=== PATIENT | male | born 1975 | race Caucasian/White ===

== ENCOUNTER 2021-04-03 08:40 | Emergency (ER) | payer BC, OTHER ==
[~2021-04-03] VITALS: Ht 188 cm; Wt 123.4 kg
--- NOTE | 2021-04-03 09:01 | NUR ---
BIB [facility],[employer] FOUND HIM LAYING NAKED IN A PARKING LOT,WITH NO DEFINITE COMPLAINT. THE PATIENT DENIES PAIN. IN ROOM AIR AND DENIES SOB. RESPIRATIN REGULAR AND UNLABORED. WILL CONTINUE TO MONITOR THE PATIENT.
--- NOTE | 2021-04-03 11:47 | NUR ---
Rheumatology Nurse consultation: Rheumatology Nurse consultation requested due to patient asking to meet with a social sciences lecturer. Patient is a 45 year old male, who was brought into the ED by paramedics after [employer] found him laying naked in a parking lot. Per ED physician's notes, patient does not have any definite complaints, except wanting to speak with a social sciences lecturer. This LADLE CAR OPERATOR attempted to meet with the patient. Patient was asleep, and this LADLE CAR OPERATOR had to call out his name 3 times for patient to open his eyes. Patient was unable to keep his eyes open, dosing off when this LADLE CAR OPERATOR attempted to interview him. This LADLE CAR OPERATOR needed to ask patient to open his eyes, and when patient was able to, he was observed to be rolling his eyes. Patient's responses are delayed, and at times patient is unable to provide responses to questions. 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 Some of patient's responses were incoherent, and when this LADLE CAR OPERATOR would ask patient to repeat his response, and patient would just stare at this LADLE CAR OPERATOR without providing a response. Patient was able to provide this LADLE CAR OPERATOR with his last name after this LADLE CAR OPERATOR asked him 3 times. Patient was not able to provide his , and was not oriented to place and reason for ED visit. At this time, this LADLE CAR OPERATOR is unable to complete a thorough assessment. This LADLE CAR OPERATOR met with Dr. Arteaga and discussed above information. Rheumatology Nurse will follow-up later after Dr. Arteaga completes medical screening. Patient presents with poor hygiene, foul body odor, and is unkempt and disheveled.
[2021-04-03 12:14] LABS: BASOPHILS # (AUTO) 0.1 K/uL (0.0-0.2); BASOPHILS % (AUTO) 0.8 % (0.0-2.0); EOSINOPHILS % (AUTO) 0.5 % (0.0-6.0); HEMATOCRIT 48 % (39-51); HEMOGLOBIN 16.3 g/dL (13.5-17.5); LYMPHOCYTES # (AUTO) 2.2 K/uL (0.8-4.8); LYMPHOCYTES % (AUTO) 20.6 % (20.0-44.0); MEAN CORPUSCULAR HGB CONC 34 g/dl (31.0-36.0); MEAN CORPUSCULAR VOLUME 91 fL (80-96); MONOCYTES # (AUTO) 0.9 K/uL (0.1-1.30); MONOCYTES % (AUTO) 8.6 % (2.0-12.0); NEUTROPHILS # (AUTO) 7.5 K/uL (1.8-8.9); NEUTROPHILS % (AUTO) 69.5 % (43.0-81.0); PLATELET COUNT (AUTO) 310 K/uL (150-450); RED BLOOD CELL COUNT(AUTO) 5.27 MIL/uL (4.5-6.0); WHITE BLOOD COUNT (AUTO) 10.8 K/uL (4.3-11.0)
[2021-04-03 12:28] LABS: ALANINE AMINOTRANSFERASE 22 U/L (12-78); ALBUMIN 3.6 g/dL (3.4-5.0); ALCOHOL, BLOOD < 3 mg/dL (0-0); ALKALINE PHOSPHATASE 121 U/L (46-116); ASPARTATE AMINOTRANSFERASE 37 U/L (15-37); BILIRUBIN,DIRECT 0.3 mg/dL (0.0-0.2); BILIRUBIN,TOTAL 1.6 mg/dL (0.2-1.0); CALCIUM, SERUM 9.3 mg/dL (8.5-10.1); CARBON DIOXIDE 27 mmol/L (21-32); CHLORIDE 102 mmol/L (98-107); CREATININE 1.1 mg/dL (0.6-1.3); GLUCOSE 87 mg/dL (74-106); SODIUM SERUM 138 mmol/L (136-145); UREA NITROGEN, BLOOD 16 mg/dL (7-18)
[2021-04-03 12:53] LABS: ACETAMINOPHEN 0 ug/ml (10-30)
[2021-04-03 13:46] LABS: BILIRUBIN,URINE MODERATE (NEGATIVE); COLOR,URINE YELLOW (YELLOW); LEUKOCYTE ESTERASE ,URINE Negative (NEGATIVE); NITRITE, URINE Negative (NEGATIVE); PROTEIN,URINE 30 mg/dl (NEGATIVE); UGLUCOSE Negative (NEGATIVE)
--- NOTE | 2021-04-03 14:41 | NUR ---
Observation Nurse note: environmental services associate follow up for homelessness. SW attempted to interview patient at his bedside in the emergency department. Patient was arousable but presented confused and unresponsive. Patient was malodorous and appeared unkempt. Per toxicology report, patient is positive for amphetamine use. [employer] notified charge nurse, Ian of this SW's attempt to interview. [employer]CH was instructed to file homeless resources and waiver in the patient's chart. SS will remain available as needed.
[2021-04-03 14:47] LABS: RBC,URINE NONE SEEN /HPF (0-2); WBC,URINE NONE SEEN /HPF (0-3)
[2021-04-03 14:49] LABS: BACTERIA,URINE None seen /HPF (None Seen); SQUAMOUS EPITHELIAL CELL,UR 0-2 /HPF (None Seen)
[2021-04-03 14:51] LABS: HYALINE CASTS, URINE Rare /LPF (None Seen)
--- NOTE | 2021-04-03 19:36 | NUR ---
ASSUMED CARE. PT ASLEEP, AROUSABLE, NO ACUTE DISTRESS NOTED, RESP EVEN AND UNLABORED. NO PAIN OR DISCOMFORT NOTED. PT AAOX4, DENIES SI/HI AT THIS TIME. 1:1 SITTER AT BEDSIDE. WILL CONTINUE TO MONITOR PT.
[2021-04-03 22:16] VITALS: BP 127/62
--- NOTE | 2021-04-03 23:32 | NUR ---
PT AAOX4, AMBULATORY WITH STEADY GAIT REQUESTING TO LEAVE. PT REFUSING TO WAIT FOR DISCHARGE INSTRUCTION AND HOMELESS DISCHARGE. PT STATES "I GETTING OUT OF HERE BRO, I'VE BEEN HERE TOO LONG, I CAN'T WAIT ANY LONGER".
== END 2021-04-03 23:39 | disposition home or self-care (01) ==
LOC: ER 08:52
DX: R41.82 Altered mental status, unspecified (principal); F15.10 Other stimulant abuse, uncomplicated; Z59.0 Homelessness; Z20.822 Contact with and (suspected) exposure to COVID-19; I10 Essential (primary) hypertension; G93.89 Other specified disorders of brain
CPT/HCPCS: 36415; 70450; 80048; 80076; 80143; 80307; 80320; 81001; 85025; 87426; 99284; C9803; G0480

== ENCOUNTER 2021-04-04 16:15 | Emergency (ER) | payer BC, OTHER ==
[~2021-04-04] VITALS: Ht 188 cm; Wt 78.5 kg
--- NOTE | 2021-04-04 16:22 | NUR ---
[address],[employer] FOUND HIM "BUTT NAKED AND REFUSING TO PUT ON HIS PANTS" CAME IN TODAY WITH A DIFFERENT NAME BUT WE RECOGNIZED HIM SINCE. THE PATIENT IS ALERT AND ORIENETED X2. DENIES PAIN. IN ROOM AIR AND DENIES SOB. RESPIRATION REGULAR AND UNLABORED. THE PATIENT DENIES SI/HI. WILL CONTINUE TO MONITOR THE PATIENT.
--- NOTE | 2021-04-04 16:46 | NUR ---
SEEN BY MERRY VILLALPANDO FOR EVAL,HOMELESS RESOURCES PROVIDED
--- NOTE | 2021-04-04 16:50 | NUR ---
[place] Se[place] Note: Patient brought in by ambulance today after being found naked in the street and refusing to put on his pants. Patient was also in the ED yesterday for the same reason, found naked lying down in a parking lot. This SUPPORT REPRESENTATIVE met with him yesterday. At this time, homeless resources were once again provided, along with locations for additional homeless services, such as clothing and supportive services: 1) [facility] [address] [place] [address] 2) [facility] [address] [place] [address] 3) [facility] [address] [place], [place] [phone] 4) [facility] [address] [place], [place] [phone] 5) [facility] [address] [place] [address]
--- NOTE | 2021-04-04 16:53 | NUR ---
COVID SWAB DONE AND SENT TO THE LAB
[2021-04-04 17:01] LABS: BASOPHILS # (AUTO) 0.1 K/uL (0.0-0.2); BASOPHILS % (AUTO) 1.3 % (0.0-2.0); EOSINOPHILS % (AUTO) 0.7 % (0.0-6.0); HEMATOCRIT 47 % (39-51); HEMOGLOBIN 15.9 g/dL (13.5-17.5); LYMPHOCYTES # (AUTO) 2.5 K/uL (0.8-4.8); LYMPHOCYTES % (AUTO) 29.3 % (20.0-44.0); MEAN CORPUSCULAR HGB CONC 34 g/dl (31.0-36.0); MEAN CORPUSCULAR VOLUME 91 fL (80-96); MONOCYTES # (AUTO) 0.8 K/uL (0.1-1.30); MONOCYTES % (AUTO) 9.3 % (2.0-12.0); NEUTROPHILS % (AUTO) 59.4 % (43.0-81.0); PLATELET COUNT (AUTO) 315 K/uL (150-450); RED BLOOD CELL COUNT(AUTO) 5.11 MIL/uL (4.5-6.0); WHITE BLOOD COUNT (AUTO) 8.5 K/uL (4.3-11.0)
[2021-04-04 17:08] LABS: CARBON DIOXIDE 27 mmol/L (21-32); CHLORIDE 104 mmol/L (98-107); CREATININE 1.3 mg/dL (0.6-1.3); GLUCOSE 107 mg/dL (74-106); POTASSIUM 3.8 mmol/L (3.5-5.1); SODIUM SERUM 142 mmol/L (136-145); UREA NITROGEN, BLOOD 23 mg/dL (7-18)
[2021-04-04 17:14] LABS: ACETAMINOPHEN < 2 ug/ml (10-30); ALANINE AMINOTRANSFERASE 26 U/L (12-78); ALBUMIN 3.8 g/dL (3.4-5.0); ALCOHOL, BLOOD < 3 mg/dL (0-0); ALKALINE PHOSPHATASE 120 U/L (46-116); ASPARTATE AMINOTRANSFERASE 41 U/L (15-37); BILIRUBIN,DIRECT 0.3 mg/dL (0.0-0.2); BILIRUBIN,TOTAL 1.5 mg/dL (0.2-1.0); TOTAL PROTEIN, SERUM 8.2 g/dL (6.4-8.2)
[2021-04-04] MEDS ORDERED: IV NS 0.9% 1,000 ML BAG IV ONE (17:30)
--- NOTE | 2021-04-04 17:36 | NUR ---
U/S TECH AT BEDSIDE FOR GALLBLADDER ULTRASOUND.
--- NOTE | 2021-04-04 18:33 | NUR ---
THE PATIENT STATES THAT HE DOES NOT FEEL URINATING AT THIS TIME. WILL TRY AGAIN LATER
--- NOTE | 2021-04-04 19:36 | NUR ---
ASSUMED CARE. PT ASLEEP, EASILY AROUSABLE, NO ACUTE DISTRESS NOTED, RESP EVEN AND UNLABORED. PT DENIES PAIN. PT STATES "LEAVE ME THE FUCK ALONE BRO". SITTER AT BEDSIDE FOR PT SAFETY.
--- NOTE | 2021-04-04 23:06 | NUR ---
FOOD PROVIDED TO PT PER PT REQUEST. PT MADE AWARE OF PENDING DISCHARGE. PT REQUESTING TO REST A LITTLE BIT MORE SO HE COULD BE READY TO GO.
--- NOTE | 2021-04-05 01:06 | NUR ---
PT REMAINS ASLEEP, AROUSABLE, NO ACUTE DISTRESS NOTED, RESP EVEN AND UNLABORED. PT DENEIS PAIN OR DISCOMFORT AT THIS TIME. WILL CONTINUE TO MONITOR.
[2021-04-05 03:51] VITALS: BP 133/69
--- NOTE | 2021-04-05 04:15 | NUR ---
PT AAOX4, AMBULATORY, WANTS TO LEAVE ER. PT STATES "I OUT OF HERE BRO, I GOT SOMEWHERE TO GO TODAY". PT LEFT WITHOUT ACI AND WITHOUT SIGNING HOMELESS WAIVER.
== END 2021-04-05 04:22 | disposition home or self-care (01) ==
LOC: ER 16:16
DX: F15.10 Other stimulant abuse, uncomplicated (principal); K80.20 Calculus of gallbladder without cholecystitis without obstruction; Z59.0 Homelessness; I10 Essential (primary) hypertension; Z20.822 Contact with and (suspected) exposure to COVID-19; K76.0 Fatty (change of) liver, not elsewhere classified
CPT/HCPCS: 36415; 76705; 80048; 80076; 80143; 80320; 82962; 85025; 87426; 96360; 99285; C9803; J7030; G0480